=== PATIENT | male | born 2000 | race Hispanic/Latino ===

== ENCOUNTER 2021-10-04 22:50 | Emergency (ER) | payer OTHER ==
[2021-10-05] MEDS ORDERED: TETANUS/DIPHTHERIA TOXOID [ADULT] 0.5 ML VIAL IM ONE (02:30)
[2021-10-05] MEDS ORDERED: IBUPROFEN 600 MG TABLET PO ONE (02:30)
[2021-10-05] MEDS ORDERED: ACETAMINOPHEN 500 MG TABLET PO ONE (02:30)
[2021-10-05] MEDS ORDERED: NEOMY SULF/BACITRA/POLYMYXIN B 1 EACH PACKET TP ONE (02:30)
[2021-10-05 02:31] VITALS: BP 134/71
== END 2021-10-05 02:34 | disposition home or self-care (01) ==
LOC: EDH 22:50
DX: S60.413A Abrasion of left middle finger, initial encounter (principal); Z79.1 Long term (current) use of non-steroidal anti-inflammatories (NSAID); W26.8XXA Contact with other sharp object(s), not elsewhere classified, initial encounter; Y93.89 Activity, other specified; Y92.89 Other specified places as the place of occurrence of the external cause; Y99.8 Other external cause status
CPT/HCPCS: 90471; 90714